=== PATIENT | male | born 1990 | race Two or more races ===

== ENCOUNTER 2021-03-26 01:10 | Emergency (ER) | payer BC ==
[~2021-03-26] VITALS: Ht 177.8 cm; Wt 80.9 kg
--- NOTE | 2021-03-26 01:42 | PHYS DOC ---
Past Medical History Past Surgical History: No Surgical History General Adult EDM: Chief Complaint: ANXIETY/PANIC ATTACK HPI: HPI: Patient is a 40 year old [f__sex] who presents with [] Review of Systems: Review of Systems: Constitutional: Denies fever or chills. [] Eyes: Denies change in visual acuity. [] HENT: Denies nasal congestion or sore throat. [] Respiratory: Denies cough or shortness of breath. [] Cardiovascular: Denies chest pain or edema. [] GI: Denies abdominal pain, nausea, vomiting, bloody stools or diarrhea. [] : Denies dysuria. [] Musculoskeletal: Denies back pain or joint pain. [] Integument: Denies rash. [] Neurologic: Denies headache, focal weakness or sensory changes. [] Endocrine: Denies polyuria or polydipsia. [] Lymphatic: Denies swollen glands. [] Psychiatric: Denies depression or anxiety. [] Heart Score: Risk Factors: Risk Factors: DM, Current or recent (<one month) smoker, HTN, HLP, family history of CAD, obesity. Risk Scores: Score 0 - 3: 2.5% MACE over next 6 weeks - Discharge Home Score 4 - 6: 20.3% MACE over next 6 weeks - Admit for Clinical Observation Score 7 - 10: 72.7% MACE over next 6 weeks - Early Invasive Strategies Allergies: Allergies: Allergies Coded Allergies Type Severity Reaction Last Updated Verified No Known Drug Allergies 03/26/21 No Physical Exam: PE: Constitutional: Well developed, well nourished, no acute distress, non-toxic appearance. [] HENT: Normocephalic, atraumatic, bilateral external ears normal, oropharynx moist, no oral exudates, nose normal. [] Eyes: PERRLA, EOMI, conjunctiva normal, no discharge. [] Neck: Normal range of motion, no tenderness, supple, no stridor. [] Cardiovascular:Heart rate regular rhythm, no murmur [] Lungs & Thorax: Bilateral breath sounds clear to auscultation [] Abdomen: Bowel sounds normal, soft, no tenderness, no masses, no pulsatile masses. [] Skin: Warm, dry, no erythema, no rash. [] Back: No tenderness, no CVA tenderness. [] Extremities: No tenderness, no cyanosis, no clubbing, ROM intact, no edema. [] Neurologic: Alert and oriented X 3, normal motor function, normal sensory function, no focal deficits noted. [] Psychologic: Affect normal, judgement normal, mood normal. [] Current Patient Data: Vital Signs: Vital Signs Date Time Temp Pulse Resp B/P (MAP) Pulse Ox O2 Delivery O2 Flow Rate FiO2 03/26/21 01:24 98.6 79 135/113 100 98.6 EKG: EKG: [] Radiology/Procedures: Radiology/Procedures: [] Course & Med Decision Making: Course & Med Decision Making Pertinent Labs and Imaging studies reviewed. (See chart for details) [] Dragon Disclaimer: [employer] [place] Disclaimer: This electronic medical record was generated, in whole or in part, using a voice recognition dictation system. Departure Departure Impression: Primary Impression: Panic attack Additional Impression: Side effect of drug Disposition: HOME / SELF CARE / HOMELESS Condition: STABLE Patient Instructions: Anxiety and Panic Attacks, [id number], Drug Allergy, [id number] Additional Instructions: Discontinue use of trazodone as it is unclear if that might have caused your symptoms this evening. Follow closely with your doctor regarding refill of another medication. Scripts Lorazepam (ATIVAN) 0.5 Mg Tablet 0.5 MG PO TID PRN for ANXIETY, #10 TAB Prov: ISABEL ACEVES DO 03/26/21 ISABEL ACEVES DO Mar 26, 2021 01:42
[2021-03-26] MEDS ORDERED: LORazepam 0.5 MG TABLET PO ONE (01:45)
[2021-03-26 01:58] VITALS: BP 138/71
[2021-03-26] MEDS ORDERED: LORA0.5T96 PO (02:09)
== END 2021-03-26 02:17 | disposition home or self-care (01) ==
LOC: EDBD 01:10 → ER 01:10
DX: F41.0 Panic disorder [episodic paroxysmal anxiety] (principal); T50.995A Adverse effect of other drugs, medicaments and biological substances, initial encounter; Y92.89 Other specified places as the place of occurrence of the external cause
CPT/HCPCS: 99283

== ENCOUNTER 2021-09-13 19:56 | Emergency (ER) | payer OTHER, BC ==
[~2021-09-13] VITALS: Ht 177.8 cm; Wt 84.1 kg
[~2021-09-13 19:56] MED LIST: LORA0.5T96 PO
[2021-09-13 20:30] VITALS: BP 147/73
[2021-09-13] MEDS: IBUPROFEN 200 MG TABLET. PO ONE (21:00)
[2021-09-13] MEDS: NEOMY/BACITR/POLYMYXIN OINT PACKET. TP ONE (21:17)
--- NOTE | 2021-09-13 21:22 | PHYS DOC ---
Past Medical History Past Medical History: Anxiety, Depression Additional Past Surgical Histo: Right jaw surgery secondary to an abscess Smoking Status: Never Smoker Alcohol Use: Occasionally Drug Use: None General Adult EDM: Chief Complaint: NECK INJURY HPI: HPI: Patient is a 30 year old male presents with report of right lateral scalp and jaw discomfort which started after construction accident today. Patient reports he was on a lift and ended up having his head "' squished to the side". Patient reports she felt a audible "pop "in his jaw. Reports subsequent pain. Patient denies any loss of conscious. Denies nausea or vomiting. Denies use of blood thinners. Patient does report an abrasion to this area. Reports last tetanus booster less than 5 years ago. Patient reports some swelling to this area as w ell. Reports the swelling has since subsided. Patient reports he presents to the ER today to make sure "nothing is wrong ". Patient does report history of right jaw surgery in the past secondary to an abscess. Review of Systems: Review of Systems: Constitutional: Denies fever or chills Eyes: Denies redness or eye pain HENT: Denies epistaxis and right-sided jaw pain GI: Denies nausea or vomiting : Denies dysuria or hematuria Musculoskeletal: Denies neck pain Integument: Reports abrasion to right lateral jaw and scalp Neurologic: Reports headache; denies focal weakness or sensory changes Complete systems were reviewed and found to be within normal limits, except as documented in this note. Heart Score: C/O Chest Pain: N/A Current Medications: Current Medications Medications (Trade) Dose Ordered Sig/Ernestina Start Time Stop Time Status Last Admin Dose Admin Ibuprofen (Motrin) 600 mg 1X ONCE 09/13/21 21:00 09/13/21 21:01 DC Neomycin/ Polymyxin/ Bacitracin (Triple Antibiotic Ointment) 1 pkt 1X ONCE 09/13/21 21:00 09/13/21 21:01 DC Allergies: Allergies: Allergies Coded Allergies Type Severity Reaction Last Updated Verified No Known Drug Allergies 03/26/21 No Physical Exam: PE: Constitutional: Well developed, well nourished, no acute distress, non-toxic appearance HENT: Normocephalic, TMs clear bilaterally, small abrasion to base of occiput on right, teeth without step-off or fracture, nares clear bilaterally Eyes: EOMI, conjunctiva normal, no discharge Neck: Normal range of motion, midline tenderness, supple Lungs & Thorax: No respiratory distress, equal chest rise and fall Skin: Warm, dry, no erythema, abrasion to base of right occiput extending onto right angle of mandibule Extremities: No tenderness, ROM intact, no edema Neurologic: Alert and oriented X 3, normal motor function, normal sensory function, no focal deficits noted Psychologic: Affect normal, judgment normal Current Patient Data: Vital Signs: Vital Signs Date Time Temp Pulse Resp B/P (MAP) Pulse Ox O2 Delivery O2 Flow Rate FiO2 09/13/21 20:30 98.6 72 16 147/73 (97) 98 Room Air 98.6 EKG: EKG: [] Radiology/Procedures: Radiology/Procedures: PROCEDURE: CT HEAD AND MAXILLOFACIAL WO CT brain without contrast, CT maxillofacial without contrast. HISTORY: Pain right scalp and jaw, construction accident CT brain CT scan of brain was done without contrast. There is no skull fracture. Some sinuses are clear. Mastoids are normally aerated. There is no intracranial hemorrhage or subdural hematoma. There is no mass effect or shift of the midline. Ventricles are normal in size. IMPRESSION: 1. No intracranial hemorrhage or acute finding noted. End impression CT maxillofacial Axial CT images were obtained through the facial bones. Sagittal and coronal reconstructed images were reviewed. Mandible is intact without fracture. Sinuses are clear throughout. A facial fracture is not identified. Orbits appear unremarkable. Upper C-spine is in normal alignment. A nasal fracture is not evident. Nasal septum is in the midline with a small bony spur to the left. There is a yfn bullosa on the left. IMPRESSION: 1. No facial fracture noted. PQRS Compliance Statement: One or more of the following individualized dose reduction techniques were utilized for this examination: 1. Automated exposure control 2. Adjustment of the mA and/or kV according to patient size 3. Use of iterative reconstruction technique Electronically signed by: César Del Angel MD (09/13/2021 9:38 PM) [facility] Course & Med Decision Making: Course & Med Decision Making Pertinent Imaging studies reviewed. (See chart for details) Patient presents with report of construction injury earlier today. Small abrasion noted to base of occiput extending onto angle of right mandible. Patient with pain on palpation. Abrasion cleaned and dressed. Symptomatic treatment provided. CT head/maxillofacial without acute fracture or dislocation. Patient stable for discharge with outpatient follow-up with PCP. Discussed findings and plan with patient, who acknowledges understanding and agreement. Jhonny Disclaimer: Jhonny Disclaimer: This electronic medical record was generated, in whole or in part, using a voice recognition dictation system. Departure Departure Impression: Primary Impression: Scalp abrasion Qualified Codes: S00.01XA - Abrasion of scalp, initial encounter Disposition: HOME / SELF CARE / HOMELESS Condition: STABLE Referrals: UNKNOWN PCP NAME (PCP) Patient Instructions: Abrasion, [id number] Additional Instructions: Do not soak your wound. You may shower. Clean wound daily with soap and water. Change dressing 2 times daily. Use over the counter antibiotic ointment with each dressing change. Use [id number] ibuprofen and or Tylenol for pain discomfort. Ice area 20 minutes on the leave off next 20 minutes. Repeat several times daily for next few days. ISABEL ACEVES DO Sep 13, 2021 21:22
--- NOTE | 2021-09-13 21:40 | RAD ---
CT brain without contrast, CT maxillofacial without contrast. HISTORY: Pain right scalp and jaw, construction accident CT brain CT scan of brain was done without contrast. There is no skull fracture. Some sinuses are clear. Masto ids are normally aerated. There is no intracranial hemorrhage or subdural hematoma. There is no mass effect or shift of the midline. Ventricles are normal in size. IMPRESSION: 1. No intracranial hemorrhage or acute finding noted. End impression CT maxillofacial Axial CT images were obtained through the facial bones. Sagittal and coronal reconstructed images wer e reviewed. Mandible is intact without fracture. Sinuses are clear throughout. A facial fracture is n ot identified. Orbits appear unremarkable. Upper C-spine is in normal alignment. A nasal fracture is not evident. Nasal septum is in the midline with a small bony spur to the left. There is a yfn bul losa on the left. IMPRESSION: 1. No facial fracture noted. PQRS Compliance Statement: One or more of the following individualized dose reduction techniques were utilized for this examinat ion: 1. Automated exposure control 2. Adjustment of the mA and/or kV according to patient size 3. Use of iterative reconstruction technique Electronically signed by: César Del Angel MD (09/13/2021 9:38 PM) [facility]
== END 2021-09-13 22:26 | disposition home or self-care (01) ==
LOC: ER 19:56
DX: S00.01XA Abrasion of scalp, initial encounter (principal); R68.84 Jaw pain; X50.9XXA Other and unspecified overexertion or strenuous movements or postures, initial encounter; Y93.89 Activity, other specified; Y92.89 Other specified places as the place of occurrence of the external cause; Y99.8 Other external cause status
CPT/HCPCS: 70450; 70486; 99284-25